=== PATIENT | male | born 1990 | race African-American/Black ===

== ENCOUNTER 2018-09-06 16:34 | Emergency (ER) | payer MEDICAID ==
[~2018-09-06] VITALS: Ht 185.4 cm; Wt 91.0 kg
[2018-09-06 18:35] LABS: CLARITY URINE CLOUDY (CLEAR); COLOR URINE YELLOW (YELLOW); KETONES URINE TRACE (NEGATIVE); LEUKOCYTE ESTERASE URINE 3+ (NEGATIVE); NITRITE URINE NEGATIVE (NEGATIVE); OCCULT BLOOD URINE NEGATIVE (NEGATIVE); PROTEIN URINE NEGATIVE (NEGATIVE); SPECIFIC GRAVITY URINE 1.031 (1.005-1.030)
[2018-09-06] MEDS ORDERED: LIDOCAINE HCL/PF 1% 10 MG/ML 5ML VIAL IJ ONE (19:45)
[2018-09-06] MEDS ORDERED: AZITHROMYCIN 500 MG TABLET PO ONE (19:45)
[2018-09-06] MEDS ORDERED: CEFTRIAXONE SODIUM 250 MG/VIAL IM ONE (19:45)
[2018-09-06 19:48] VITALS: BP 128/70
== END 2018-09-06 19:54 | disposition home or self-care (01) ==
LOC: ER 16:34
DX: R36.9 Urethral discharge, unspecified (principal); Z11.3 Encounter for screening for infections with a predominantly sexual mode of transmission; R30.0 Dysuria; J45.909 Unspecified asthma, uncomplicated; F12.10 Cannabis abuse, uncomplicated; F17.200 Nicotine dependence, unspecified, uncomplicated
CPT/HCPCS: 81003; 96372; 99283; J0696; J3490

== ENCOUNTER 2021-10-06 17:40 | Emergency (ER) | payer MEDICAID ==
[~2021-10-06] VITALS: Ht 185.4 cm; Wt 91.0 kg
[2021-10-06 17:50] VITALS: BP 109/60
[2021-10-06] MEDS ORDERED: IBUP-2030 MT (18:29)
[2021-10-06] MEDS ORDERED: CEPH500T MT (18:29)
[2021-10-06] MEDS ORDERED: BACITRACIN ZINC OINT UDPKT TOP ONE (18:30)
[2021-10-06] MEDS ORDERED: TRAMADOL 50MG TABLET PO ONE (18:30)
== END 2021-10-06 19:07 | disposition home or self-care (01) ==
LOC: ER 17:40
DX: T16.1XXA Foreign body in right ear, initial encounter (principal); J45.909 Unspecified asthma, uncomplicated; X58.XXXA Exposure to other specified factors, initial encounter; Y93.89 Activity, other specified; Y92.9 Unspecified place or not applicable; Z91.011 Allergy to milk products
CPT/HCPCS: 69200; 99284